=== PATIENT | male | born 1950 | race Caucasian/White ===

== ENCOUNTER 2021-03-13 05:46 | Day surgery (SDC) | payer SELFPAY ==
--- NOTE | 2021-02-26 08:49 | EKG12_ITS ---
Test Reason : PREOP Blood Pressure : / mmHG Vent. Rate : 072 BPM Atrial Rate : 072 BPM P-R Int : 158 ms QRS Dur : 084 ms QT Int : 368 ms P-R-T Axes : 065 090 075 degrees QTc Int : 402 ms Normal sinus rhythm Normal ECG Confirmed by RUBÉN CANADA, MERLY ([id number]), development editor ZENAIDA FERRER ([id number]) on 02/27/2021 7:55:39 AM Referred By: Víctor Coker Confirmed By:MERLY MONTANA MD
[2021-02-26 09:29] LABS: Hematocrit 35.3 % (40-54); Hemoglobin 11.3 g/dL (13.0-16.5); Mean Corpuscular Hgb 30.1 pg (27.0-32.0); Mean Corpuscular Volume 93.9 fL (80-94); Mean Platelet Vol. 9.6 fl (6.2-12.0); Platelet Count 305 K/mm3 (150-450); RBC Distribution Width CV 12.8 % (11.6-14.6); RBC Distribution Width SD 44.2 fl (35.1-43.9); Red Blood Count 3.76 M/mm3 (4.6-6.2); White Blood Count 8.7 K/mm3 (4.4-11.0)
[2021-03-13] VITALS (10 sets, daily range): BP systolic 90–148; BP diastolic 53–88; PULSE 60–92; RESP 16–18; TEMP 35.6–37; O2SAT 96–100; BMI 21.2
--- NOTE | 2021-03-13 | PROS_PTH ---
PATIENT: ALEXEY FREEMAN [place] [facility] [id number] AGE/SX: 71/M ROOM: RE03/13/[address]: Dr. Víctor Coker MD : [id number] BED: DIS: 03/14/2021 SPEC #: [id number] RECD: 03/13/21 12:01 STATUS: CORA CURIEL #: [id number] E[place]: 03/13/21 00:[address]: Víctor Coker DEPT: SURGICAL PATHOLOGY RECD BY: Colin Montero ENTERED: 03/13/21 12:01 SP TYPE: TURP OTHR DR: Bro Sheridan PA-C Tissues: Prostate, NOS Procedures: Surgery Specimen Level IV HEADER OPERATION: Cysto, TUR prostate, Olymp[employer] PRE-OP DIAGNOSIS: Urinary retention TISSUE SUBMITTED: Prostate pieces MICROSCOPIC DIAGNOSIS Prostate, transurethral resection: Benign nodular hyperplasia, glandular and stromal types. No chronic inflammation. Benign urothelium with associated mild chronic inflammation. AM:sushant 03/14/2021 MICROSCOPIC DESCRIPTION Slides are reviewed. GROSS DESCRIPTION Received is one container labeled with the patient's name and designated prostate tissue. The specimen consists of multiple irregular fragments of pink-sandoval, rubbery, soft tissue that in aggregate weigh 20.6 gm and measure in aggregate 6 x 6 x 3 cm. Legal Secretary Receptionist tissue is submitted in ten cassettes. / SJ:sushant 03/13/21 TC:3 CPT: 30611
[2021-03-13] MEDS: Lactated Ringers 1,000 ML 100 ML IV ×2 (06:47→09:35)
--- NOTE | 2021-03-13 07:25 | PCM.HP.STD ---
HPI - General HPI Narrative ALEXEY FREEMAN, is a 71 M who presents for transurethral resection of prostate he has developed retention of urine patient understands is always possible the surgery may fail and he may need to learn self intermittent catheterization long-term. [facility] Medical History (Updated 03/13/21 @ 07:[address] Víctor Coker MD) Back pain Depression Heartburn History of edema History of renal disease Indwelling urethral catheter present Leg cramps Loss of hearing Low iron Prostate disease Smoker Syncope Wears dentures Wears glasses Home Medications Bioquartin 1 cap PO/SL BID 02/20/21 [History Last Taken 03/12/21] Blast Thisthle 1 cap PO/SL DAILY 02/20/21 [History Last Taken 03/12/21] Bymoless 1 cap PO/SL BID 02/20/21 [History Last Taken 03/12/21] Capaplex 2 tab PO/SL TID 02/20/21 [History Last Taken 03/12/21] Cardio Plus 2 tab PO/SL TID 02/20/21 [History Last Taken 03/12/21] Claw Fresh 1 cap PO/SL TID 02/20/21 [History Last Taken 03/12/21] Cyruta Plus 2 cap PO/SL TID 02/20/21 [History Last Taken 03/12/21] Gi 1 cap PO/SL DAILY 02/20/21 [History Last Taken 03/12/21] Liver Fractions 1 tab PO/SL TID 02/20/21 [History Last Taken 03/12/21] Pqq 1 cap PO/SL DAILY 02/20/21 [History Last Taken 03/12/21] Renal Plus 3 tab PO/SL DAILY 02/20/21 [History Last Taken 03/12/21] ciprofloxacin HCl [Cipro] 500 mg PO BID PRN 02/20/21 [History Last Taken 03/12/21] coenzyme Q10 [CoQ-10] 100 mg PO TID 02/20/21 [History Last Taken 03/12/21] zinc 50 mg PO DAILY 02/20/21 [History Last Taken 03/12/21] ciprofloxacin HCl [Cipro] 500 mg PO BID #14 tab 03/13/21 [Rx Last Taken Unknown] Allergy/AdvReac Type Severity Reaction Status Date / Time No Known Allergies Allergy Verified 02/20/21 10:54 Surgical History (Updated 02/20/21 @ 11:15 by Katalina Jorge) Hx of tooth extraction Social History Smoking Status: Current every day smoker tobacco type: smokeless tobacco ROS Constitutional Constitutional: Denies chills, fever(s) or malaise Eyes Eyes: Denies blurry vision or change in vision ENT HEENT: Reports none Cardiovascular Cardiovascular: Denies chest pain or palpitations Respiratory/Chest Respiratory/Chest: Denies cough or shortness of breath with exertion Gastrointestinal Gastrointestinal: Denies abdominal pain, constipation or diarrhea Musculoskeletal Musculoskeletal: Denies back pain, joint stiffness or joint swelling Integumentary Integumentary: Denies dry skin, jaundice, lesions or rash Neurologic Neurologic: Denies confusion, syncope or weakness Psychiatric Psychiatric: Reports none; Denies anxiety or depression Endocrine Endocrinology: Denies excessive sweating, fatigue or flushing Hematologic/Lymphatic Hematologic/Lymphatic: Denies anemia, easy bleeding or easy bruising Vital Signs Vital Signs Vital Signs: 03/13/21 06:15 Temperature 98.0 F Temperature Source Temporal Pulse Rate 67 Respiratory Rate 16 Respiratory Pattern Normal Blood Pressure 141/72 H Blood Pressure Mean 95 Blood Pressure Source Monitor Blood Pressure Position Semi-Fowlers Blood Pressure Location Left Arm Pulse Ox 98 Oxygen Delivery Method Room Air Weight Weight: 59.5 kg Body Mass Index (BMI) 21.2 Physical Exam Const alert and oriented x3 General Appearance: cooperative HEENT normocephalic, head/scalp atraumatic, EAC's normal and TM's normal bilaterally Eyes PERRL and EOMs intact bilaterally Pupil: sluggish Neck no lymphadenopathy, supple and no JVD General: trachea midline Lymph Lymphatic: no lymphadenopathy noted, lymphedema and lymphadenopathy Resp normal respiratory effort, normal air movement and clear to auscultation bilaterally Cardio regular rate, regular rhythm and peripheral pulses 2+ throughout GI soft to palpation, non-tender and non-distended Extremity normal capillary refill and no clubbing, cyanosis or edema General Extremity: no tenderness to palpation of joints or extremities Skin no rashes or lesions noted General Skin Exam: turgor normal Lesions: no lesions Rashes: no rashes Neuro CN's II-XII intact bilaterally Speech: speech normal Motor Exam: strength 5/5 throughout; Negative for general weakness Psych thought process normal, cooperative and affect normal Appearance: appropriate Results Lab / Micro Data Result Diagrams: 02/26/21 09:00 Micro: Microbiology 03/12/21 08:15 SARS-CoV-2 Antigen (Rapid) - Final Interface Orders Assessment & Plan Assessment/Plan (1) BPH with obstruction/lower urinary tract symptoms: PLAN: Plan to proceed with transurethral resection of the prostate.
--- NOTE | 2021-03-13 07:26 | PCM.DC ---
Discharge Instructions Diet Discharge Diet: No restrictions Activity Discharge Activity: Return to Normal Activity and May Not Drive (while taking narcotic pain medications.) Dressing / Incision Call your doctor if you observe: Fever of 101 or Higher Follow Up Care Please Follow Up With: Víctor Coker MD When: Call [phone] for an appointment Test Results: Test results from this visit will be discussed in further detail at your follow-up appointment, if applicable. Discharge Plan Admission Primary Reason for Your Visit: TURP Attending Provider: Víctor Coker Primary Care Provider: Bro Sheridan Discharge Orders/Prescriptions Prescriptions: New ciprofloxacin HCl [Cipro] 500 mg tablet 500 mg PO BID Qty: 14 RF: 0 Continued ciprofloxacin HCl [Cipro] 250 mg Tablet 500 mg PO BID PRN (Reason: INFECTION) RF: 0 zinc 50 mg Tablet 50 mg PO DAILY RF: 0 coenzyme Q10 [CoQ-10] 100 mg Capsule 100 mg PO TID RF: 0 Bioquartin 1 cap PO/SL BID RF: 0 Blast Thisthle 1 cap PO/SL DAILY RF: 0 Bymoless 1 cap PO/SL BID RF: 0 Capaplex 2 tab PO/SL TID RF: 0 Cardio Plus 2 tab PO/SL TID RF: 0 Claw Fresh 1 cap PO/SL TID RF: 0 Cyruta Plus 2 cap PO/SL TID RF: 0 Gi 1 cap PO/SL DAILY RF: 0 Liver Fractions 1 tab PO/SL TID RF: 0 Pqq 1 cap PO/SL DAILY RF: 0 Renal Plus 3 tab PO/SL DAILY RF: 0 Discontinued tamsulosin [Flomax] 0.4 mg Capsule 0.4 mg PO BID RF: 0 Referrals / Follow Up: Bro Sheridan DO [Primary Care Provider] - Víctor Coker MD [STAFF PHYSICIAN] - Disposition Disposition (needs filled in before D/C Order can be placed): Home, Self Care
[2021-03-13] MEDS: Cefazolin 2 GM in 0.9% Normal Saline 100 ML IV (07:28)
--- NOTE | 2021-03-13 09:14 | PCM.OPRPT ---
Report of Operation Date of Procedure: 03/13/21 Pre-Operative Diagnosis: BPH with obstruction Post-Operative Diagnosis: Same Surgery/Procedure Performed:: Transurethral section of prostate Description of Surgical Findings:: In the preoperative setting I discussed with the patient how the surgery would be done with expect afterwards. We discussed how a prostate resection is done and we discussed the risk of the surgery including, bleeding, infection, retrograde ejaculation, changes with ejaculation or intercourse,. We discussed the possibility that the resection of the prostate may not alleviate his urinary symptoms. We discussed the small risk of developing scar tissue along the urethral channel and strictures. We also discussed the chance of the prostate could grow back and he may need further surgery or treatment in the future for prostate problems. Patient was taken back to the operating room, timeout procedure was performed, he was identified and marked and placed on the operating room table. He underwent general anesthesia. He was placed in dorsolithotomy position. Penis and testicles were prepped and draped in usual sterile fashion. Went into the bladder using the visual obturator with a resectoscope. Once inside the bladder identified the right and left ureteral orifice. I then identified the prostate and the anatomy of the prostate. I marked out the area of the sphincter and the verumontanum was identified. I then proceeded with the prostate resection first resected the median lobe. And then resected the right lobe of the prostate. Then to resect the left lobe of the prostate. I then resected the apical tissue of the prostate. Made sure that there was no injury to the sphincter or the verumontanum was still intact. At the end of the resection all the chips were Ellik out of the bladder. I then identified the left and right ureteral orifice and these were confirmed to be in good position and effluxing and not injured. The resectoscope was removed, a 22 [place]ish catheter was placed into the bladder on continuous irrigation. And the urine was fairly light pink color and draining normally. He was taken back to the PACU in good condition. Surgeon: Víctor Coker Type of Anesthesia: General Admit VTE Documentation VTE Present on Admission: No VTE Mechan Device Prophylaxis: SCD's
[2021-03-13] MEDS: Lactated Ringers 1,000 ML 125 ML IV ×2 (12:38→20:22)
[2021-03-13] MEDS: Ciprofloxacin 500 MG Tablet PO ×2 (15:34→21:17)
[2021-03-14] MEDS: Lactated Ringers 1,000 ML 125 ML IV (03:45)
[2021-03-14 03:47] VITALS: BP 98/57; PULSE 62; RESP 16; TEMP 36.7; O2SAT 98
[2021-03-14 08:10] VITALS: BP 110/56; PULSE 61; RESP 16; TEMP 36.7; O2SAT 96
[2021-03-14] MEDS: Ciprofloxacin 500 MG Tablet PO (10:25)
== END 2021-03-14 15:20 | disposition home or self-care (01) ==
LOC: SDC 05:48 → AC 05:48 → MS3 03-14 10:31
PROVIDERS: Anesthesiology; PCP Physician Assistant; Referring Provider Urology; Visit Provider Urology
PROC: (CPT 52601; principal; 2021-03-13 07:20)
DX: N40.1 Benign prostatic hyperplasia with lower urinary tract symptoms (principal); R33.8 Other retention of urine; N13.8 Other obstructive and reflux uropathy; F32.9 Major depressive disorder, single episode, unspecified; H91.90 Unspecified hearing loss, unspecified ear; Z79.899 Other long term (current) drug therapy; F17.200 Nicotine dependence, unspecified, uncomplicated
CPT/HCPCS: 00914; 52601; 36415; 85027; 87426; 88305; 93005; 99251; 99406; C9803; J7120; G0463; J2405